=== PATIENT | female | born 1960 | race Caucasian/White ===

== ENCOUNTER 2017-05-09 07:31 | Emergency (ER) | payer OTHER ==
--- NOTE | 2017-05-09 07:48 | PDOC ---
History of Present Illness - General Chief Complaint: Injury Stated Complaint: RT FOOT CRUSH INJURY History Source: Patient (Patient brought in by car with friend with injury to te left foot when this morning prior to arrival, attempting to change a car tire , the car fell on her right foot. No other injuties reported ) Exam Limitations: No Limitations - History of Present Illness Occurred: reports: just prior to arrival Severity: reports: moderate, severe Pain Location: reports: lower extremity Loss of Consciousness: no loss of consciousness Associated Symptoms (Fall): denies symptoms Past History - Travel Traveled outside of the country in the last 30 days: No Close contact w/someone who was outside of country & ill: No - Past Medical History Allergies/Adverse Reactions: Allergies Allergy/AdvReac Type Severity Reaction Status Date / Time No Known Allergies Allergy Verified 05/09/17 07:32 Home Medications: Ambulatory Orders Cephalexin Monohydrate [Keflex -] 500 mg PO BID #14 capsule 05/09/17 Ibuprofen [Motrin -] 600 mg PO TID #21 tablet 05/09/17 Oxycodone HCl/Acetaminophen [Percocet 5-325 mg Tablet] 1 - 2 tab PO Q6H #20 tab MDD 4 05/09/17 Sulfamethoxazole/Trimethoprim [Bactrim Ds -] 1 tab PO BID #14 tablet 05/09/17 - Suicide/Smoking/Psychosocial Hx Anxiety: No Suicidal Ideation: No Smoking History: Never smoked Substance Use Type: None Medical Decision Making - Medical Decision Making see full note on the cosigned with resident, Dr Frazier 05/14/17 20:02 *DC/Admit/Observation/Transfer Diagnosis at time of Disposition: Fracture - Discharge Dispostion Disposition: HOME Condition at time of disposition: Improved - Prescriptions Prescriptions: Sulfamethoxazole/Trimethoprim [Bactrim Ds -] 1 tab PO BID #14 tablet Cephalexin Monohydrate [Keflex -] 500 mg PO BID #14 capsule Ibuprofen [Motrin -] 600 mg PO TID #21 tablet Oxycodone HCl/Acetaminophen [Percocet 5-325 mg Tablet] 1 - 2 tab PO Q6H #20 tab MDD 4 - Patient Instructions Printed Discharge Instructions: Foot Fracture Additional Instructions: Please return to the ER if symptoms persist, worsen, or new symptoms arise. Please follow up with Dr. Moser tomorrow. Please return if you experience severe pain, fever, chills, nausea, or vomiting. Please take your antibiotics as prescribed for 7 days. Print Language: GRENADIAN
[2017-05-09 08:12] VITALS: BP 102/64; PULSE 66; TEMP 98.2; BMI 26.1
[2017-05-09] MEDS ORDERED: ONDANSETRON *ODT* 4 MG TABLET ONE (09:15)
[2017-05-09] MEDS ORDERED: ONDANSETRON *ODT* 4 MG TABLET SL ONE (09:15)
--- NOTE | 2017-05-09 10:00 | PDOC ---
History of Present Illness - General Chief Complaint: Injury Stated Complaint: RT FOOT CRUSH INJURY Time Seen by Provider: 05/09/17 07:49 History Source: Patient Exam Limitations: No Limitations - History of Present Illness Initial Comments: 05/09/17 09:56 The patient is a 57 F with no PMH who presents to the ED after sustaining a R foot injury. She was changing her tire aruond 0715 this morning and had the axle of the car fall on her foot. She thinks there may have been a tire to blunt to the fall of the car on her foot. The car was lifted by neighbors and she came to the ED. She was initially complaining of numbness and tingling but no longer has these symptoms. She did not attempt to ambulate but thinks that she would not have been able to if she tried. Past History - Past Medical History Allergies/Adverse Reactions: Allergies Allergy/AdvReac Type Severity Reaction Status Date / Time No Known Allergies Allergy Verified 05/09/17 07:32 Home Medications: Ambulatory Orders NK [No Known Home Medication] 05/09/17 Other medical history: DENIES - Immunization History Immunization Up to Date: Yes - Psycho/Social/Smoking Cessation Hx Anxiety: No Suicidal Ideation: No Smoking History: Never smoked Have you smoked in the past 12 months: No Information on smoking cessation initiated: No Hx Alcohol Use: No Drug/Substance Use Hx: No Substance Use Type: None Review of Systems - Review of Systems Able to Perform ROS?: Yes Is the patient limited Portuguese proficient: No Constitutional: No: Chills, Fever Cardiac (ROS): No: Chest Pain, Lightheadedness, Palpitations Neurological: No: Numbness, Paresthesia, Tingling, Weakness, Unsteady Gait, Dizziness *Physical Exam - Vital Signs Last Vital Signs Temp Pulse Resp BP Pulse Ox 98.2 F 66 20 102/64 100 05/09/17 07:32 05/09/17 07:32 05/09/17 07:32 05/09/17 07:32 05/09/17 07:32 - Physical Exam General Appearance: Yes: Nourished, Appropriately Dressed HEENT: positive: Normal Voice, Hearing Grossly Normal Respiratory/Chest: positive: Lungs Clear, Normal Breath Sounds. negative: Chest Tender, Respiratory Distress, Accessory Muscle Use, Labored Respiration Cardiovascular: positive: Regular Rhythm, Regular Rate. negative: Diastolic Murmur, Systolic Murmur Gastrointestinal/Abdominal: positive: Flat, Soft. negative: Tender, Decreased BS, Distended, Guarding, Rebound, Tenderness Extremity: positive: Normal Range of Motion Integumentary: positive: Normal Color, Dry, Warm, Other (R foot with 3 lacerations. 1 is 1cm linear, the second is .3cm linear, and the third is .2cm without linear skin edges.) Neurologic: positive: Fully Oriented, Alert, Normal Mood/Affect. negative: Motor Strength 5/5 (Decreased motor strength in R foot d/t pain. neurovascularly intact.) Procedures - Laceration/Wound Repair Right Dorsal Foot Wound Length: to 2.5 cm (1) 1cm, 2) .3cm, 3) .2cm; all linear) Wound Explored: clean Wound's Depth, Shape: superficial (x 3) Irrigated w/ Saline: Yes Betadine Prep: No Anesthesia: 1% Lidocaine Wound Debrided: minimal Wound Repaired With: Sutures Suture Size/Type: 4:0 Number of Sutures: 5 Layer Closure: No Sterile Dressing Applied: Yes Splint Applied: Yes (posterior leg splint) Sling Applied: No ED Treatment Course - Medications Given in the ED: ED Medications Discontinued Medications Generic Name Dose Route Start Last Admin Trade Name Joseph PRN Reason Stop Dose Admin Ondansetron HCl 4 mg 05/09/17 09:15 05/09/17 09:16 Zofran Odt - SL 05/09/17 09:16 4 mg NOW ONE Administration Oxycodone/Acetaminophen 2 combo 05/09/17 07:36 05/09/17 08:04 Percocet 5/325 - PO 05/09/17 07:37 2 combo ONCE ONE Administration Medical Decision Making - Medical Decision Making 05/09/17 10:34 The patient is a 57F with no PMH who presents with an open fracture of her R foot. Ortho ELAINA Rodgers saw the patient in the ED and recommends irrigation in the ED, suture closure, and a posterior orthoglass splint with ortho follow up tomorrow with Dr. Moser. 05/09/17 11:45 I have closed the lacerations and placed a posterior splint. Will d/c with antibiotics and crutches. I informed the patient to be non-weight bearing on this foot. I have instructed the patient to take ibuprofen as needed for pain and inflammation and to follow up with Dr. Moser tomorrow. *DC/Admit/Observation/Transfer Diagnosis at time of Disposition: Fracture of bone - Discharge Dispostion Disposition: HOME Condition at time of disposition: Improved Admit: No - Patient Instructions Printed Discharge Instructions: Foot Fracture Additional Instructions: Please return to the ER if symptoms persist, worsen, or new symptoms arise. Please follow up with Dr. Moser tomorrow. Please return if you experience severe pain, fever, chills, nausea, or vomiting.
[2017-05-09] MEDS ORDERED: CEFAZOLIN 1 GM in DEXTROSE 5%-WATER - 50 ML IVPB ONE (10:28)
[2017-05-09] MEDS ORDERED: ceFAZolin SODIUM 1 GM VIAL ONE (10:35)
--- NOTE | 2017-05-09 10:47 | PDOC ---
Attending Attestation - Resident Resident Name: Ailyn Frazierony - ED Attending Attestation I have performed the following: I have examined & evaluated the patient, The case was reviewed & discussed with the resident, I agree w/resident's findings & plan, Exceptions are as noted - HPI HPI: Patient presented with pain in the foot after car fell on it. See full notes This is a duplication 05/14/17 20:00 - Physicial Exam PE: Lacerations foot as described 05/14/17 19:59 - Medical Decision Making crushed injury foot, fracture , lac, Ortho consult called 05/14/17 20:01
--- NOTE | 2017-05-09 11:02 | CONSULT ---
Consult Reason for Consultation:: Right foot pain - History of Present Illness History of Present Illness: 57-year-old female was changing her car tire this morning. the wheel was off the car and the warren slipped and landed directly on her right foot and she immediately had pain. She came to the emergency room where she had x-rays was diagnosed with a fracture. The pain is worse with movement of the foot and better with rest. She has been unable to bear weight since the injury. There are no other associated, aggravating or relieving factors. She denies any numbness or tingling - History Source History Provided By: Patient Limitations to Obtaining History: No Limitations - Alcohol/Substance Use Hx Alcohol Use: No - Smoking History Smoking history: Never smoked Have you smoked in the past 12 months: No Home Medications - Allergies Allergies/Adverse Reactions: Allergies Allergy/AdvReac Type Severity Reaction Status Date / Time No Known Allergies Allergy Verified 05/09/17 07:32 - Home Medications Home Medications: Ambulatory Orders NK [No Known Home Medication] 05/09/17 Review of Systems - Review of Systems Constitutional: reports: No Symptoms Eyes: reports: No Symptoms HENT: reports: No Symptoms Neck: reports: No Symptoms Cardiovascular: reports: No Symptoms Respiratory: reports: No Symptoms Gastrointestinal: reports: No Symptoms Genitourinary: reports: No Symptoms Breasts: reports: No Symptoms Reported Musculoskeletal: reports: Extremity Pain Integumentary: reports: Wound Neurological: reports: No Symptoms Endocrine: reports: No Symptoms Hematology/Lymphatic: reports: No Symptoms Psychiatric: reports: No Symptoms Physical Exam Vital Signs: Vital Signs Temperature 98.2 F 05/09/17 07:32 Pulse Rate 66 05/09/17 07:32 Respiratory Rate 20 05/09/17 07:32 Blood Pressure 102/64 05/09/17 07:32 O2 Sat by Pulse Oximetry (%) 100 05/09/17 07:32 Constitutional: Yes: Well Nourished, No Distress, Calm Musculoskeletal: Yes: Other ( Right foot: There is a approximately 2 cm laceration along the dorsum of the first metatarsal and 2 smaller less than 1 cm lacerations just proximal to this. There is no sign of infection. Her tenderness over the first metatarsal. EHL is intact. Neurovascularly intact distally. Compartments soft. No other areas of tenderness) Imaging - Results X-ray: Report Reviewed, Image Reviewed ( nondisplaced first metatarsal fracture) Assessment/Plan left foot laceration and first metatarsal nondisplaced fracture I discussed today's findings and treatment options with the patient. I recommended irrigation of the wounds and primary closure as well as antibiotics. Treatment of the wounds is being done by the emergency room resident. I recommended splint immobilization and follow-up with Dr. Moser tomorrow.
--- NOTE | 2017-05-11 16:36 | PDOC ---
Attending Attestation - Resident Resident Name: Richard Frazier - ED Attending Attestation I have performed the following: I have examined & evaluated the patient, The case was reviewed & discussed with the resident, I agree w/resident's findings & plan, Exceptions are as noted - HPI HPI: see my note ( a duplication) 05/11/17 16:34 - Physicial Exam PE: see my note ( a duplication ) 05/11/17 16:35 - Medical Decision Making see my note ( a duplication ) 05/11/17 16:36
== END 2017-05-09 12:05 | disposition home or self-care (01) ==
LOC: FER 07:31
PROC: 0HQMXZZ Repair Right Foot Skin, External Approach (ICD-10-PCS; principal; 2017-05-09)
PROC: 2W3QX1Z Immobilization of Right Lower Leg using Splint (ICD-10-PCS; 2017-05-09)
DX: S92.311A Displaced fracture of first metatarsal bone, right foot, initial encounter for closed fracture (principal); V09.00XA Pedestrian injured in nontraffic accident involving unspecified motor vehicles, initial encounter; Y93.89 Activity, other specified; Y92.410 Unspecified street and highway as the place of occurrence of the external cause
CPT/HCPCS: 73630-TC-RT; 99282-25

== ENCOUNTER 2025-01-09 12:26 | Emergency (ER) | payer OTHER ==
[2025-01-09 12:31] VITALS: BP 152/76; PULSE 55; RESP 17; TEMP 97.9; BMI 24.3
[2025-01-09] MEDS: KETOROLAC TROMETHAMINE 15 MG/ML VIAL IVPUSH ONE (13:30)
[2025-01-09 13:41] LABS: ABSOLUTE IMMATURE GRANULOCYTES 0.01 x10^3/uL (0.0-0.031); BASOPHILS # 0.04 x10^3/uL (0.01-0.08); EOSINOPHIL % 1.6 % (0.7-5.8); HEMATOCRIT 38.3 % (34.1-44.9); HEMOGLOBIN 13.6 g/dL (11.2-15.7); MCHC 35.5 g/dl (32.2-35.5); MEAN CELL VOLUME 91.8 fl (79.4-94.8); MEAN PLT VOLUME 9.8 fl (9.4-12.3); MONOCYTE # 0.42 x10^3/uL (0.24-0.86); MONOCYTE % 6.6 % (4.7-12.5); PLATELET COUNT 305 x10^3/uL (182-369); RDW 11.1 % (12.4-16.4)
[2025-01-09] MEDS ORDERED: KETOROLAC TROMETHAMINE 15 MG/ML VIAL ONE (13:42)
[2025-01-09 13:50] LABS: ALBUMIN 4.4 g/dl (3.4-5.0); ALK PHOS 57 U/L (45-117); ANION GAP 8 mmol/L (4-13); BILIRUBIN,TOTAL 0.7 mg/dl (0.2-1); CALCIUM 9.5 mg/dl (8.5-10.1); CHLORIDE 105 mmol/L (98-107); CO2 27 mmol/L (21-32); CREATININE 0.8 mg/dl (0.6-1.3); GLUCOSE,RANDOM 101 mg/dl (74-106); SGOT/AST 15 U/L (15-37); SGPT/ALT 9 U/L (7-52); SODIUM 140 mmol/L (136-145); TOT PROT 6.2 g/dl (6.4-8.2)
[2025-01-09 13:57] LABS: EPITHELIAL CELLS 0-5 /hpf
[2025-01-09 16:12] LABS: HCV DIAGNOSTIC IN-HOUSE W/RFLX NON-REACTIVE (NONREACTIVE); HIV INTERPRETATION NEGATIVE (NEGATIVE)
== END 2025-01-09 17:02 | disposition home or self-care (01) ==
LOC: FER 12:26
PROC: 3E0333Z Introduction of Anti-inflammatory into Peripheral Vein, Percutaneous Approach (ICD-10-PCS; principal; 2025-01-09)
DX: K52.9 Noninfective gastroenteritis and colitis, unspecified (principal); M85.80 Other specified disorders of bone density and structure, unspecified site; R11.0 Nausea; R10.31 Right lower quadrant pain
CPT/HCPCS: 36415; 74178-TC; 76705-TC; 76775-TC; 80053; 81003; 81015; 83690; 85025; 86140; 86803; 87389; 99285-25; Q9967